=== PATIENT | female | born 1950 | race Caucasian/White ===

== ENCOUNTER → 2024-02-25 13:12 | Outpatient (REF) | payer MEDICARE, OTHER, SELFPAY | LOC: WDC 13:12 | PROVIDERS: ATTENDING PHYSICIAN Family Medicine | DX: Z12.31 Encounter for screening mammogram for malignant neoplasm of breast (principal) | CPT/HCPCS: 77063; 77067 ==

== ENCOUNTER → 2025-03-02 10:31 | Outpatient (REF) | payer MEDICARE, OTHER, SELFPAY | LOC: WDC 10:31 | PROVIDERS: ATTENDING PHYSICIAN Family Medicine | DX: Z12.31 Encounter for screening mammogram for malignant neoplasm of breast (principal) | CPT/HCPCS: 77063; 77067 ==

== ENCOUNTER 2025-05-28 13:32 | Inpatient (IN) | payer MEDICARE, OTHER, SELFPAY ==
[2025-05-28] VITALS (8 sets, daily range): BP systolic 105–158; BP diastolic 54–82; BMI 27.0
--- NOTE | 2025-05-28 11:19 | ED.GENMED ---
History of Present Illness
General
Chief Complaint: Breathing Problem
Source: patient and family
Time Seen by Provider: 05/28/25 11:04
History of Present Illness
History of Present Illness:
74-year-old female presents emergency department with URI symptoms that began over the weekend described as mild cough and slight congestion. She was staying with her daughter who is bedside now. Daughter brought her to her home yesterday and she
seemed relatively well. However, patient sent her a text last night that seemed a little 'disoriented', described as more of a mood use and she typically would. The patient FaceTime with her daughter shortly after that text and daughter states
that she seemed her usual self. Daughter came to see her this morning and patient was noted to be wheezy and complained of feeling cold which prompted her visit here. On presentation, patient noted to be hypoxic on room air. She does not
typically wear oxygen. History is somewhat limited due to patient deaf. She denies chest pain, abdominal pain.
Past History
Past History
ED Past Medical History: COPD, GERD, HTN, Hypercholesterolemia, Hypothyroidism and Other (Deaf in the right ear, wears a hearing aid in the left)
ED Past Surgical History: Cholecystectomy, Orthopedic (Carpal tunnel surgery right, Cervical laminectomy) and Other (Sinus surgery)
Social History
Tobacco: Former smoker
Alcohol: None
Drug: None
Personal:
Living: alone
Phy Exam
Physical Exam
Physical Exam:
GENERAL: Alert , in no apparent distress
EYE: pupils equal and reactive, no photophobia
NECK: Supple, no significant adenopathy.
ENT: o/p clr, mmm.
CARDIAC: Regular rate and rhythm .
LUNGS: Equal breath sounds bilaterally, tachypneic, diffuse wheezing with rhonchi, occasional nonproductive cough
ABDOMEN: Soft, without focal tenderness, no r/g, no cvat
NEUROLOGICAL: Alert and oriented, no focal neuro deficits except hard of hearing
SKIN: Warm and dry, skin intact.
MUSCULOSKELETAL: No edema, well perfused.
PSYCH: Normal and appropriate interaction.
Course
Orders/Labs/Results
Orders:
Orders
05/28/25 11:17
Electrocardiogram (*1) Stat
Reason for Study: Other
Other Reason for Exam: pneumonia
Cardiac Monitoring- Treatment ONCE
EKG- Treatment ONCE
Albuterol Sulfate [Ventolin Nebules] 7.5 mg INH R NOW STA
Dexamethasone Sod Phosphate [Decadron] 10 mg IV NOW STA
Pulse Ox/cont/shift [RESP] Stat
Quantity: 1
05/28/25 11:18
CR Chest - 2 Views Urgent
Comment:
Reason For Exam: wheezing, cough
05/28/25 11:56
COVID-19 Antigen Urgent
Source: Nasal Swab
Complete Blood Count/No Diff Urgent
Comprehensive Metabolic Panel Urgent
Lactic Acid Q4H
Comment: CANCEL 2nd LACTIC ACID IF 1st LACTIC ACID IS LESS THAN 2
NT-proBNP Urgent
Troponin I Urgent
Blood Culture Q30M
GAGAN Source: Blood/Venous
Specimen Description:
Influenza A+B Rapid Molecular Urgent
GAGAN Source: Nasal Swab
Specimen Description:
05/28/25 11:57
Blood Culture Q30M
GAGAN Source: Blood/Venous
Specimen Description:
05/28/25 12:22
Oseltamivir Phosphate [Tamiflu] 75 mg PO NOW STA
Abnormal Lab Results
05/28/25
11:56
MCHC 32.4 L g/dL
(33.0-37.0)
BUN 22 H mg/dl
(7-17)
Glucose 114 H mg/dl
(70-99)
05/28/25 11:56
05/28/25 11:56
Vital Signs
Initial and Last Documented VS:
Initial Vital Signs
Temp Pulse Resp BP Pulse Ox
99.1 F 126 24 158/78 89
05/28/25 10:56 05/28/25 10:56 05/28/25 10:56 05/28/25 10:56 05/28/25 10:56
Last Documented Vital Signs
Temp Pulse Resp BP Pulse Ox
99.1 F 132 16 125/64 95
05/28/25 10:56 05/28/25 12:00 05/28/25 12:00 05/28/25 12:00 05/28/25 12:04
*Pulse Oximetry
SaO2: 91
Nasal Cannula flow liters per minute: 3
Oxygen Mode of Delivery: Room air
Update Note
Update Note:
Patient presents to the Emergency Department with ____wheezing
Number and Complexity of Problems Addressed at the Encounter
� Chronic conditions affecting care:
� Acute Exacerbation and/or Progression of Chronic Illness:
� Differential Diagnosis includes: But not limited to bronchitis, pneumonia, COVID, influenza, COPD exacerbation, ACS, PE, etc. etc.
Amount and/or Complexity of Data to be Reviewed and Analyzed
� I performed an independent evaluation of and my interpretation is:
EKG:read by me, sinus tachycardia, no acute ischemia
CT:
Xrays:cxr nad (read by me)
Laboratory Studies:flu +, nl wbc,
Other:
� Review of other/old records reveals:
� Clinical information was obtained by an independent historian: Daughter Sara who is at bedside
� Prescriptions/Medications Considered but not given:
� Further testing considered but not performed:
Risk of Complications and/or Morbidity or Mortality of Patient Management
� Social determinants of health affecting care:
� Discussion with other providers (PCP, Hospitalists, Consultants, etc):
� Escalation of care including admission/observation vs risk of discharge considered:Pt with influenza, hypoxia, wheezing/copd exacerbation...given nebs/steroids/tamiflu....hospitalist aware.
ED Attending Note
-
Portions of this chart may have been created with voice recognition software.� Occasional wrong word or��sound alike� substitutions may have occurred due to the inherent limitations of voice recognition software.
Discharge Plan
Departure
Patient Disposition: Admit
Date of Disposition: 05/28/25
Time of Disposition: 12:35
Admit to: Telemetry
Presentation/result/management discussed w/ accepting MD/DO: Hospitalist
Condition: Good
Discharge Problem:
Influenza, Dyspnea
Prescriptions:
No Action
atorvastatin 20 MG tablet
20 mg PO HS
aripiprazole [Abilify] 20 MG tablet
20 mg PO HS
fluticasone propionate [Flonase] 50 mcg/actuation [place],Suspension
2 spray INTRANASAL DAILYPRN PRN (Reason: congestion)
fluticasone propion-salmeterol 250-50 mcg/dose Blister With Device
0 inh INHALATION .SEE BELOW
Patient Comments:
05/28/2025, prescribed for pt. to take 1 puff BID, but pt. rarely uses this med, only using a couple times a week per daughter.
levothyroxine 112 mcg Tablet
112 mcg PO DAILY
Referrals:
Kelvin Joiner MD [Family Provider, Family Practice]
Interventions
Interventions:
*General Assessment Last Done: 05/28/25 10:56
*Neglect/Abuse Screening Last Done: 05/28/25 10:56
*ED COVID-19 Vaccine History Last Done: 05/28/25 12:04
*ED Influenza Vaccine History Last Done: 05/28/25 12:04
[facility] Risk Assessment Tool Last Done: 05/28/25 12:04
*Risk Screen - Suicide (C-SSRS) Last Done: 05/28/25 12:21
ED- Cardiac Assessment Last Done: 05/28/25 12:04
ED- Pulmonary Assessment Last Done: 05/28/25 12:04
Discharge Date and Time
Print Language: VIETNAMESE
[2025-05-28] MEDS: VENTOLIN NEBULES 7.5 MG INH (11:44)
[2025-05-28] MEDS: DECADRON 10 MG IV (11:59)
[2025-05-28 12:20] LABS: Hematocrit 41.3 % (37.0-47.0); Hemoglobin 13.4 g/dL (12.0-16.0); Mean Corp Hgb Conc. 32.4 g/dL (33.0-37.0); Mean Corpuscular Volume 88.6 fL (81.0-99.0); Platelet Count 228 10^3/uL (130-400); Red Cell Dist. Width 14.1 % (11.5-14.5)
[2025-05-28 12:32] LABS: ALT (SGPT) 23 U/L (0-35); AST (SGOT) 28 U/L (14-36); Albumin 4.5 g/dl (3.5-5.0); Alkaline Phosphatase 109 U/L (38-126); Blood Urea Nitrogen 22 mg/dl (7-17); Calcium 9.0 mg/dl (8.4-10.2); Carbon Dioxide 25 mmol/L (22-30); Chloride 104 mmol/L (98-107); Estimated Creatinine Clearance 57 ml/min; Glucose 114 mg/dl (70-99); Potassium 4.1 mmol/L (3.5-5.1); Sodium 138 mmol/L (135-145); Total Protein 8.0 g/dl (6.3-8.2); eGFR > 60.00
[2025-05-28 12:33] LABS: COVID-19 Antigen Negative (Negative)
[2025-05-28 12:38] LABS: Troponin I < 0.012 ng/ml
--- NOTE | 2025-05-28 12:39 | HPS.HSE ---
Family Physician
-
Family Physician: Kelvin Joiner
Chief Complaint
-
Weakness and Shortness of Breath
History of Present Illness
Patient is a 74 y/o female past medical history of hypertension, hyperlipidemia, hypothyroidism, paranoid schizophrenia and questionable asthma who presents with shortness of breath and weakness. Additional history is obtained from patient's
daughter at bedside as patient is very hard of hearing. Patient was in her usual states of health over the weekend. Last evening patient was texting her sister, and her sister felt like she was confused on the texts. This morning daughter went to
check on her and noted she was wheezing and appeared shortness of breath. She gave her a dose of her rescue inhaler but that didn't seem to help. Daughter noted patient to be very weak and unsteady, prompting her to bring the patient to the
emergency department for evaluation
Medical History
Past Medical History
Past Medical History: Reports Other
Additional Past Medical History:
Asthma / COPD
Essential Hypertension
Hyperlipidemia
Hypothyroidism
Paranoid Schizophrenia
Past Surgical History: Reports Other
Additional Past Surgical History:
Cholecystectomy
Cervical Laminectomy
Right Carpal Tunnel
Social History
Tobacco: Non-smoker
Living: Alone
Family History
Family History: Not pertinent
Allergies / Home Medications
Allergies reflects when Allergies were last updated in [employer].
Home Medications with original date entered in [employer]
Allergy/Medication List:
Allergies
Allergy/AdvReac Type Severity Reaction Status Date / Time
cat dander Allergy POSITIVE Verified 05/28/25 10:59
ALLERGY
TESTING
dog dander Allergy POSITIVE Verified 05/28/25 10:59
ALLERGY
TESTING
tree and shrub pollen Allergy POSITIVE Verified 05/28/25 10:59
ALLERGY
TESTING
seasonal allergies Allergy congestion; Uncoded 05/28/25 10:59
stuffiness
Home Medications
atorvastatin 20 mg tablet 20 mg PO HS High cholesterol 07/30/10
aripiprazole 20 mg tablet (Abilify) 20 mg PO HS Mental Health/Anxiety 09/25/21
fluticasone propionate 50 mcg/actuation nasal spray,suspension 2 spray intranasal DAILYPRN PRN congestion 11/13/22
fluticasone 250 mcg-salmeterol 50 mcg/dose blistr powdr for inhalation 0 inh inhalation .SEE BELOW Lung/Breathing Issues 05/28/25
levothyroxine 112 mcg tablet 112 mcg PO DAILY Thyroid 05/28/25
Review of Systems
-
A 12 point ROS was completed and negative except as noted: Yes
Constitutional: Denies Fever
Respiratory: Reports Cough and Trouble Breathing
Cardiac: Denies Chest Pain
Physical Exam
Vital Signs
Vital Signs
Temp Pulse Resp BP Pulse Ox
99.1 F 132 16 125/64 95
05/28/25 10:56 05/28/25 12:00 05/28/25 12:00 05/28/25 12:00 05/28/25 12:04
Physical Exam
General: Well Developed and Well Nourished
HEENT: Anicteric and Oxygen (Nasal Cannula)
Respiratory: Wheezes (Diffuse) and Non Labored Respirations; No Accessory Resp Muscle Use
Cardiac: S1/S2, Regular Rhythm and Tachycardia
GI: Soft and Non Distended
Rectal: Deferred by Provider
Musculoskeletal: No Clubbing and No Cyanosis
Skin: Warm and Dry
Neuro: Awake, Alert and Nonfocal/grossly intact
Psych: Calm
Laboratory Results
-
05/28/25 11:56
05/28/25 11:56
Laboratory Results
Lactic Acid Cancelled 05/28/25 15:30
Total Bilirubin 0.7 mg/dl (0.2-1.3) 05/28/25 11:56
AST 28 U/L (14-36) 05/28/25 11:56
ALT 23 U/L (0-35) 05/28/25 11:56
Alkaline Phosphatase 109 U/L (38-126) 05/28/25 11:56
Troponin I < 0.012 ng/ml 05/28/25 11:56
05/28/25 11:56 Influenza Types A & B (KI) - Final
Nasal Swab Influenza A Positive, NAAT
Chest X-Ray:
No acute cardiopulmonary abnormality.
Data Reviewed
-
Diagnostic Radiology: Report Reviewed by me
Lab Data: Labs Reviewed by me
Impression/Plan
-
Acute Hypoxic Respiratory Insufficiency secondary to Acute Asthmatic Bronchitis due to Influenza Type A
-Continue supplemental oxygen
-Continue Decadron 4mg Q12H
-Continue DuoNeb QID and PRN
-Continue budesonide neb in place of fluticasone inhaler
-Continue Mucinex
-Continue Tamiflu
Paranoid Schizophrenia
-Continue Abilify
Hyperlipidemia
-Continue atorvastatin
Hypothyroidism
-Continue levothyroxine
DVT proph: Lovenox
Code Status: Full Code
[2025-05-28] MEDS: TYLENOL 1000 MG PO (12:53)
[2025-05-28] MEDS: TAMIFLU 75 MG PO (12:55)
--- NOTE | 2025-05-28 12:56 | W.PN.UPDATE ---
Update Note
Progress Note Update
History is somewhat limited due to patient deaf.
This note serves as an addendum to the H&P by award clerk Wilver PADILLA
HPI
74F lives alone, Former smoker , known Impaired R Ear hearing, wears a hearing aid in the left
PMHX: COPD ( Not on home O2) , HTN, GERD , Hypothyroid
- seen at ER
- pw with URI symptoms mild cough and slight congestion over the weekend
- daughter think she was somewhat disoriented last night per the text she received
- patient FaceTime with her daughter shortly after that text and daughter states that she seemed her usual self.
- Daughter came to see her this morning and patient was noted to be wheezy and complained of feeling cold which prompted her visit here.
At ER :
Hypoxic on RA - not typically wear oxygen.
ROS: denies chest pain, abdominal pain.
Reviewed VS:
Temp Pulse Resp BP Pulse Ox
99.1 F 132 16 125/64 95
05/28/25 10:56 05/28/25 12:00 05/28/25 12:00 05/28/25 12:00 05/28/25 12:04
05/28/25
10:56 05/28/25
11:09 05/28/25
12:04
SaO2 89 91 95
Oxygen Mode of Delivery Room air
Nasal Cannula flow liters per minute 3 3
PE
Gen: NAD
HEENT: unremarkable exam
Neck: supple
Lungs:Tachypneic, POx 89% on RA, diffuse b/l wheezing with rhonchi, occasional nonproductive cough
Cor: tachycardic, S1 S2
Abdomen:�soft , NT , NG
LOUVER MORTISER OPERATOR: AAO3, NFND
MS: no edema
Psych: Nl mood and affect
Relevant Data�
05/28/25
11:56
WBC 5.1
Hgb 13.4
Plt Count 228
BUN 22 H
Creatinine 0.8
eGFR > 60.00
Troponin I < 0.012
Lwn-J-Jwzhmxvafvh Pept 220
POS Flu A
NEG Covid
CXR
No acute cardiopulmonary abnormality.
Last hospitalist admission: 09/25/2021 - 09/29/2021
DISCHARGE DIAGNOSIS:
1. Acute bronchitis secondary to upper respiratory tract infection.
2. Possibly mild acute asthmatic bronchitis.
ASSESSMENT & PLAN
Acute viral illness with URI due to Influenza A
- Tamiflu
]
Associated acute asthmatic bronchitis with acute hypoxic RI requiring O2 support
HX questionable asthma
- NEG CXR
- IV Decadron
- Nebs qid and PRN
Allergies
-Continue Flonase
Hypothyroidism
-Continue levothyroxine
Hyperlipidemia
-Continue atorvastatin
Psychiatric
-Continue Abilify
DVT Px: LMWH
Code: Full code
IP TL due to hypoxia and tachycardia
--- NOTE | 2025-05-28 14:57 | EDCM ---
Reviewed chart and met with pt's daughter Sara bedside in ED. Pt was sleeping.
Pt lives alone in first floor apartment, [address]. Sara lives about 10 minutes away.
Independent in most ADLs, personal care and ambulation. Daughter says her apartment is small, she refuses to use cane or walker.
Sara preps meals for pt. Pt does her own laundry and dishes.
PMH includes COPD, GERD, HTN, elevated cholesterol, Hypothyroid
Confirms prescription coverage.
No hx HH or SNF
PCP: Kelvin Joiner
Pharmacy: [facility] [address]
Discharge disposition pending ongoing medical evaluation, CM will continue to follow for all discharge planning needs.
[2025-05-28] MEDS: NSS 1000 IV (16:31)
[2025-05-28] MEDS: LOVENOX 40 MG SC (16:32)
[2025-05-28] MEDS: DUONEB 3 ML INH ×2 (16:41→19:24)
--- NOTE | 2025-05-28 16:53 | PTCARENOTE ---
Pt. arrived via stretcher from ED. 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 Pt. deaf in R ear and 90% deaf in L ear, pt.'s daughter at bedside was able to communicate with her and me. Was able to complete the admission question. Daughter was able to
say that simple written words is the best way to communicate with pt. Pt. able to use bedside commode with a 1 assist. Will continue with plan of care.
[2025-05-28] MEDS: PULMICORT 0.5 MG INH (19:25)
[2025-05-28] MEDS: MUCINEX 600 MG PO (20:00)
[2025-05-28] MEDS: ABILIFY 20 MG PO (21:36)
[2025-05-28] MEDS: LIPITOR 20 MG PO (21:36)
[2025-05-28] MEDS: DECADRON 4 MG IV (23:31)
[2025-05-29] VITALS (8 sets, daily range): BP systolic 105–123; BP diastolic 54–65; PULSE 66–72; O2SAT 95
[2025-05-29] MEDS: SYNTHROID 112 MCG PO (06:01)
[2025-05-29 06:34] LABS: Hematocrit 35.5 % (37.0-47.0); Hemoglobin 11.9 g/dL (12.0-16.0); Mean Corp Hgb Conc. 33.5 g/dL (33.0-37.0); Mean Corpuscular Volume 86.8 fL (81.0-99.0); Platelet Count 210 10^3/uL (130-400); Red Cell Dist. Width 13.6 % (11.5-14.5)
[2025-05-29 07:00] LABS: Blood Urea Nitrogen 23 mg/dl (7-17); Calcium 8.9 mg/dl (8.4-10.2); Carbon Dioxide 22 mmol/L (22-30); Chloride 108 mmol/L (98-107); Estimated Creatinine Clearance 65 ml/min; Glucose 131 mg/dl (70-99); Potassium 4.3 mmol/L (3.5-5.1); Sodium 137 mmol/L (135-145); eGFR > 60.00
[2025-05-29] MEDS: DUONEB 3 ML INH ×4 (07:17→19:42)
[2025-05-29] MEDS: PULMICORT 0.5 MG INH ×2 (07:17→19:42)
[2025-05-29] MEDS: MUCINEX 600 MG PO ×2 (07:37→20:50)
[2025-05-29] MEDS: TAMIFLU 30 MG PO (07:37)
[2025-05-29] MEDS: TESSALON PERLES 100 MG PO ×3 (08:53→21:40)
--- NOTE | 2025-05-29 09:52 | W.PN.HOSP.TC ---
Today's Communication/Plan
-
.
Assessment / Plan
Assessment / Plan
Physical Exam
General: Well Developed and Well Nourished
HEENT: Anicteric and Oxygen (Nasal Cannula)
Respiratory: Wheezes (Diffuse) and Non Labored Respirations; No Accessory Resp Muscle Use
Cardiac: S1/S2, Regular Rhythm and Tachycardia
GI: Soft and Non Distended
Rectal: Deferred by Provider
Musculoskeletal: No Clubbing and No Cyanosis
Skin: Warm and Dry
Neuro: Awake, Alert and Nonfocal/grossly intact
Psych: Calm
Acute Hypoxic Respiratory Insufficiency secondary to Acute Asthmatic Bronchitis due to Influenza Type A
She is feeling better
No chest pain
She has cough, will c/w Mucinex and add Tessalon
-Continue supplemental oxygen
-Continue Decadron 4mg Q12H
-Continue DuoNeb QID and PRN
-Continue budesonide neb in place of fluticasone inhaler
-Continue Mucinex
-Continue Tamiflu
# Drop in HGB
No signs of active bleeding
Re- check CBC
Paranoid Schizophrenia
-Continue Abilify
Hyperlipidemia
-Continue atorvastatin
Hypothyroidism
-Continue levothyroxine
DVT proph: Lovenox
Code Status: Full Code
Total time spent to see the patient, examine the patient, review data and lab results, discuss treatment plan with patient, her daughter, nursing staff around 55 minutes
Anticipated Discharge: 24 - 48 hours
Subjective/Interval History
-
Date of Service: May 29, 2025
She is feeling better. No chest pain. She complains of cough
No fever, no chills
Objective Data
-
Labs:
Laboratory Results
05/29/25
06:16
WBC 7.8
Hgb 11.9 L
Hct 35.5 L
Plt Count 210
Sodium 137
Potassium 4.3
Chloride 108 H
Carbon Dioxide 22
BUN 23 H
Creatinine 0.7
Glucose 131 H
Calcium 8.9
Vital Signs:
Vital Signs
Temp Pulse Resp BP Pulse Ox
98 F 71 16 105/62 95
05/29/25 08:24 05/29/25 08:24 05/29/25 08:24 05/29/25 08:24 05/29/25 08:24
[2025-05-29] MEDS: DECADRON 4 MG IV (11:24)
[2025-05-29] MEDS: LOVENOX 40 MG SC (17:06)
[2025-05-29] MEDS: DESENEX/MITRAZOL/ZEASORB 1 APPLIC TOPICAL (20:50)
[2025-05-29] MEDS: TAMIFLU 75 MG PO (20:50)
[2025-05-29] MEDS: ABILIFY 20 MG PO (21:35)
[2025-05-29] MEDS: LIPITOR 20 MG PO (21:40)
[2025-05-30] MEDS: DECADRON 4 MG IV ×3 (00:50→23:22)
[2025-05-30 03:00] VITALS: BP 116/62
[2025-05-30] MEDS: SYNTHROID 112 MCG PO (05:11)
[2025-05-30] MEDS: MUCINEX 600 MG PO ×2 (07:17→20:28)
[2025-05-30] MEDS: TAMIFLU 75 MG PO ×2 (07:17→20:28)
[2025-05-30] MEDS: TESSALON PERLES 100 MG PO ×3 (07:17→20:29)
[2025-05-30] MEDS: DESENEX/MITRAZOL/ZEASORB 1 APPLIC TOPICAL ×2 (07:18→20:29)
[2025-05-30 07:25] VITALS: BP 116/59
[2025-05-30] MEDS: PULMICORT 0.5 MG INH ×2 (07:31→21:49)
[2025-05-30] MEDS: DUONEB 3 ML INH ×4 (07:31→21:49)
--- NOTE | 2025-05-30 09:17 | W.PN.HOSP.TC ---
Addendum entered and electronically signed by Ashley Riggins MD 05/30/25 13:35:
updated the daughter
Original Note:
Today's Communication/Plan
-
likely dc in am
Assessment / Plan
Assessment / Plan
Encounter mainly using writing ( pt communicates by reading lips/ texting with family) since she is deaf
Physical Exam
General: Well Developed and Well Nourished
HEENT: Anicteric and Oxygen (Nasal Cannula)
Respiratory: Wheezes (Diffuse) and Non Labored Respirations; No Accessory Resp Muscle Use
Cardiac: S1/S2, Regular Rhythm and Tachycardia
GI: Soft and Non Distended
Rectal: Deferred by Provider
Musculoskeletal: No Clubbing and No Cyanosis
Skin: Warm and Dry
Neuro: Awake, Alert and Nonfocal/grossly intact
Psych: Calm
Acute Hypoxic Respiratory Insufficiency secondary to Acute Asthmatic Bronchitis due to Influenza Type A
She is feeling better
No chest pain
She has cough, will c/w Mucinex and add Tessalon
-Continue supplemental oxygen
-Continue Decadron 4mg Q12H
-Continue DuoNeb QID and PRN
-Continue budesonide neb in place of fluticasone inhaler
-Continue Mucinex
-Continue Tamiflu
# Drop in HGB
No signs of active bleeding
Re- check CBC
Paranoid Schizophrenia
-Continue Abilify
Hyperlipidemia
-Continue atorvastatin
Hypothyroidism
-Continue levothyroxine
DVT proph: Lovenox
Code Status: Full Code
Total time spent to see the patient, examine the patient, review data and lab results, discuss treatment plan with patient, nursing staff around 45 minutes
Anticipated Discharge: Within 24 hours
Subjective/Interval History
-
Date of Service: May 30, 2025
Encounter mainly using writing ( pt communicates by reading lips/ texting with family) since she is deaf
She denies sob, chest pain
Reports cough is less
Objective Data
-
Vital Signs:
Vital Signs
Temp Pulse Resp BP Pulse Ox
97.5 F 86 16 116/59 95
05/30/25 07:25 05/30/25 07:33 05/30/25 07:33 05/30/25 07:25 05/30/25 08:34
I&O
05/29/25 05/30/25 05/31/25
06:59 06:59 06:59
Intake Total 720 / 720 660 / 660
Balance 720 / 720 660 / 660
[2025-05-30 11:25] VITALS: BP 116/56
[2025-05-30 16:00] VITALS: BP 113/60
[2025-05-30] MEDS: LOVENOX 40 MG SC (17:09)
[2025-05-30 20:18] VITALS: BP 120/54
[2025-05-30] MEDS: LIPITOR 20 MG PO (20:28)
[2025-05-30] MEDS: ABILIFY 20 MG PO (20:28)
[2025-05-30 23:35] VITALS: BP 125/56
[2025-05-31 03:07] VITALS: BP 127/61
[2025-05-31] MEDS: SYNTHROID 112 MCG PO (04:55)
[2025-05-31] MEDS: PULMICORT 0.5 MG INH (07:32)
[2025-05-31] MEDS: DUONEB 3 ML INH ×2 (07:32→11:17)
[2025-05-31 07:59] VITALS: BP 154/73
[2025-05-31] MEDS: TAMIFLU 75 MG PO (09:51)
[2025-05-31] MEDS: TESSALON PERLES 100 MG PO (09:51)
[2025-05-31] MEDS: MUCINEX 600 MG PO (09:51)
--- NOTE | 2025-05-31 09:53 | W.PN.HOSP.TC ---
Today's Communication/Plan
-
Discharge
Assessment / Plan
Assessment / Plan
Encounter mainly using writing ( pt communicates by reading lips/ texting with family) since she is deaf
Physical Exam
General: Well Developed and Well Nourished
HEENT: Anicteric and Oxygen (Nasal Cannula)
Respiratory: much better, no wheezes or rales.
Cardiac: S1/S2, Regular Rhythm and Tachycardia
GI: Soft and Non Distended
Rectal: Deferred by Provider
Musculoskeletal: No Clubbing and No Cyanosis
Skin: Warm and Dry
Neuro: Awake, Alert and Nonfocal/grossly intact
Psych: Calm
Acute Hypoxic Respiratory Insufficiency secondary to Acute Asthmatic Bronchitis due to Influenza Type A
Significant clinical improvement with resolution of hypoxia and wheezes. Continue course to taper prednisone at hide patient setting. Continue course Tamiflu to finish 5 days course. No need for hypoxia. Ambulating without distress and
tolerating diet. Given prescription for Mucinex and Tessalon for cough
Paranoid Schizophrenia
-Continue Abilify
Hyperlipidemia
-Continue atorvastatin
Hypothyroidism
-Continue levothyroxine
DVT proph: Lovenox
Code Status: Full Code
Total discharge time spent to see the patient, examine the patient, review data and lab results, discuss discharge plan with patient, her daughter, nursing staff around 65 minutes
Anticipated Discharge: Today
Subjective/Interval History
-
Date of Service: May 31, 2025
No chest pain
No sob
Much less cough
Feels ready to go home
Objective Data
-
Vital Signs:
Vital Signs
Temp Pulse Resp BP Pulse Ox
98.4 F 73 16 154/73 97
05/31/25 07:59 05/31/25 07:59 05/31/25 07:59 05/31/25 07:59 05/31/25 07:59
I&O
05/30/25 05/31/25 06/01/25
06:59 06:59 06:59
Intake Total 660 / 660 840 / 840
Balance 660 / 660 840 / 840
[2025-05-31] MEDS: DESENEX/MITRAZOL/ZEASORB 1 APPLIC TOPICAL (09:56)
[2025-05-31 12:17] VITALS: BP 114/74
[2025-05-31] MEDS: DECADRON IV (12:50)
--- NOTE | 2025-05-31 13:44 | CM ---
Addendum entered by Margo Asencio 05/31/25 13:51:
CM also provided pt's daughter with the Medicare [employer] list to review for LTC options.
Original Note:
CM met with Emmanuelle and her daughter today. Daughter is considering options, such as SNF placement, predatory animal exterminator care, in-home services. Pt has a limited income; daughter provided with resource information for [facility] to request waiver services for her
mother.
Plan: Discharge to home; pt's daughter plans to contact the [facility] for assistance due to her income.
--- NOTE | 2025-05-31 13:54 | W.DCSUMMARY ---
Discharge Summary
Discharge Data
Date of Admission: 05/28/25
Date of Discharge: 05/31/25
-
Pending Results: No
Hospital Course
74 years old female with significant hearing impairment presented with cough and respiratory symptoms. She was dealing with upper respiratory symptoms and started to be weak. She was found to be hypoxic on room air. Chest radiography did not show
acute findings. She did not have fever or leukocytosis. She tested positive for influenza A. She was diagnosed with acute influenza infection with asthma exacerbation. She was admitted to the hospital received Tamiflu and steroid therapy with
nebulizer. She improved significantly and oxygen saturation became normal on room air. She was given cough medicine. Patient remained hemodynamic stable and tolerated diet. She was able to ambulate without distress. She was given a prescription
to taper of prednisone in the outpatient setting in addition to finish Tamiflu. Patient was evaluated by physical therapy, nurse case manager and discharge home in a stable condition.
Discharge Plan
-
Patient Disposition: Home with Home Care
Discharge Diagnosis/Procedures: Acute Hypoxic Respiratory Insufficiency secondary to Acute asthma and Influenza Type A
Condition: Fair
Diet: As tolerated
Referrals:
Kelvin Joiner MD [Family Provider, [facility]] - in one to two weeks
Prescriptions:
New
guaifenesin 600 mg Tablet Extended Release 12hr
600 mg PO Q12 Qty: 20 0RF
oseltamivir 75 mg Capsule
75 mg PO BID Qty: 6 0RF
benzonatate 100 mg Capsule
100 mg PO TIDPRN PRN (Reason: Cough) Qty: 20 0RF
prednisone 10 mg tablet
30 mg PO DAILY Qty: 12 0RF
Rx Instructions:
30 mg daily for 2 days, 20 mg daily for 2 days, 10 mg daily for 2 days.
Continued
atorvastatin 20 MG tablet
20 mg PO HS
aripiprazole [Abilify] 20 MG tablet
20 mg PO HS
fluticasone propionate 50 mcg/actuation [place],Suspension
2 spray INTRANASAL DAILYPRN PRN (Reason: congestion)
fluticasone propion-salmeterol 250-50 mcg/dose Blister With Device
0 inh INHALATION .SEE BELOW
Patient Comments:
05/28/2025, prescribed for pt. to take 1 puff BID, but pt. rarely uses this med, only using a couple times a week per daughter.
levothyroxine 112 mcg Tablet
112 mcg PO DAILY
Discharge Orders:
Discharge Patient (As Directed); Ordered 05/31/25
Ordered By: Ashley Riggins
Discharge Date and Time
Discharge Date/Time: 05/31/25 13:42
Print Language: KITTITIAN
== END 2025-05-31 13:42 | disposition home or self-care (01) | DRG 202 ==
LOC: 3 WEST ACU 13:32
PROVIDERS: Physician Assistant Medical; ADMITTING PHYSICIAN Internal Medicine; ATTENDING PHYSICIAN Internal Medicine; EMERGENCY PHYSICIAN Emergency Medicine; FAMILY PHYSICIAN Family Medicine
DX: J45.901 Unspecified asthma with (acute) exacerbation (principal); F20.0 Paranoid schizophrenia; J44.1 Chronic obstructive pulmonary disease with (acute) exacerbation; R71.0 Precipitous drop in hematocrit; J44.0 Chronic obstructive pulmonary disease with (acute) lower respiratory infection; J10.1 Influenza due to other identified influenza virus with other respiratory manifestations; R41.0 Disorientation, unspecified; R09.02 Hypoxemia; E03.9 Hypothyroidism, unspecified; E78.00 Pure hypercholesterolemia, unspecified; I10 Essential (primary) hypertension; K21.9 Gastro-esophageal reflux disease without esophagitis; H91.91 Unspecified hearing loss, right ear; R06.89 Other abnormalities of breathing; J20.9 Acute bronchitis, unspecified; Z60.2 Problems related to living alone; Z79.890 Hormone replacement therapy; Z90.49 Acquired absence of other specified parts of digestive tract; Z87.891 Personal history of nicotine dependence; Z11.52 Encounter for screening for COVID-19
CPT/HCPCS: 71046; 80048; 80053; 83605; 83880; 84484; 85027; 87040; 87502; 87811; 93005; 94640; 94644; 96374; 97162; 97166; 99285